=== PATIENT | female | born 1955 | race Caucasian/White ===

== ENCOUNTER → 2019-08-07 | Day surgery (SDC) | payer MEDICARE, OTHER ==
[~2019-08-07] MED LIST: ACETAMINOPHEN 1000 MG/100 ML IV ONE; ARMOUR THYROID60 MG PO; BACITRACIN 50,000 UNIT VIAL ONE; BUPIVACAINE HCL 0.5% INJ 30 ML VIAL INJ ONE; CEFAZOLIN SOD 1 GM/NS 50ML 50 ML IV ONE; CO Q-10300 MG PO; DEXAMETHASONE SOD PHOS INJ 4 MG/ML VIAL ONE; FENTANYL CITRATE/PF 100MCG/2 ML INJ ONE; KETOROLAC TROMETHAMINE 30 MG/ML VIAL ONE; LIDOCAINE HCL 2% LOCAL INJ 5 ML SDV VIAL INJ ONE; MIDAZOLAM HCL 2 MG/2 ML VIAL ONE; NALOXONE HCL INJ 0.4 MG/ML AMP ONE; ONDANSETRON HCL INJ 2MG/ML 2ML 2 MG/ML VIAL ONE; PROPOFOL IV EMULSION 10 MG/ML 20 ML VIAL ONE; SEVOFLURANE INHAL SOLN 250 ML PEN BTL ONE; VIT D PO; WELLBUTRIN SR150 MG PO; [UNRECOGNIZED DRUG - OTHER] PO
[2019-08-07 08:00] VITALS: BP 101/65
--- NOTE | 2019-08-07 08:51 | Operative Report ---
DATE OF PROCEDURE: 08/07/2019 SURGEON: Harpal Yousif DPM PREOPERATIVE DIAGNOSIS: Left hallux rigidus. POSTOPERATIVE DIAGNOSIS: Left hallux rigidus. PLANNED PROCEDURE: Left Briceno bunionectomy with implant. SURGEON: Priyanka Baker DPM ([place]) SHIPPING TEAM LEADER: Harpal Yousif DPM ANESTHESIA: General with a postoperative block consisting of 20 mL of 0.5% Marcaine plain. HEMOSTASIS: Pneumatic thigh tourniquet set at 350 mmHg for a total time of approximately 30 minutes. MATERIALS: One size 2 [id number] toe reference 1st MPJ implant, 2-0 Vicryl, 3-0 Vicryl, 4-0 Prolene after 4-0 nylon. ESTIMATED BLOOD LOSS: Less than 10 mL. PATHOLOGY: None. DESCRIPTION OF PROCEDURE: The patient was seen in the preoperative waiting room where the correct procedure and site were identified. The patient was brought to the operating room and placed on the operating table in the supine position. General anesthesia was initiated at this time. A well-padded pneumatic tourniquet was placed about the patient's left thigh. The left foot, ankle and leg was then scrubbed, prepped, and draped in the usual aseptic manner. The left foot, ankle and leg was exsanguinated with an Esmarch bandage and the pneumatic thigh tourniquet was inflated to 350 mmHg for a total time of approximately 20 minutes. Attention was directed to the dorsal medial aspect of the patient's left 1st metatarsophalangeal joint where a 5 cm linear incision was made. The incision was carried through the subcutaneous tissues them from deep or underlying structures. All vital and neurovascular structures were identified, retracted medially, laterally and all bleeders were cauterized or ligated as deemed necessary. At this time, attention was directed to the 1st metatarsophalangeal joint where there was noted to be greater than 80% degenerative cartilage and only 20% viable cartilage. The decision was made to proceed with a joint destructive procedure with an implant. Utilizing a sagittal saw, the dorsal medial and lateral eminence of the 1st metatarsophalangeal joint were resected and passed off to back table as well as the base of the proximal phalanx. The wound was then copiously irrigated with sterile saline. Next, utilizing manufacture protocol, one guidewire was placed into the 1st metatarsal head utilizing intraoperative C-arm. The wire was noted to be in the correct position and location. Next, the reamers were used in the proximal 1st metatarsal as well as the base of the proximal phalanx. Next, the grommets were placed followed by the implant, this was all confirmed to be in the correct position and location with intraoperative fluoroscopy. The wound was then copiously irrigated with sterile saline. Capsule and deep tissue were reapproximated with 2-0 Vicryl, subcutaneous tissue with 3-0 Vicryl and the skin was closed using a running interlocking stitch with 4-0 nylon. Incision site was then dressed with Adaptic, 4x4s, Kerlix, Sivakumar wrap, and a postop shoe. The patient tolerated the procedure and anesthesia well. The patient was transferred to the postop recovery room with vital signs stable and vascular status intact. The patient was monitored there for a short period time before being sent home with the following written and oral instructions. 1. Keep the dressing clean, dry, and intact. 2. The patient is to remain partial weightbearing in a postop shoe and to avoid excessive ambulation until being seen in the office. 3. The patient is given the office number and instructed to contact us if any problems arise. Dictated by Harpal Yousif DPM S [facility] ([place])/MODL /[id number]
== END | disposition home or self-care (01) ==
LOC: OR 05:00
PROVIDERS: ATTEND Podiatrist Foot & Ankle Surgery
DX: M20.22 Hallux rigidus, left foot (principal); G47.33 Obstructive sleep apnea (adult) (pediatric); E78.00 Pure hypercholesterolemia, unspecified; F32.9 Major depressive disorder, single episode, unspecified; F17.210 Nicotine dependence, cigarettes, uncomplicated; Z88.6 Allergy status to analgesic agent; Z88.2 Allergy status to sulfonamides; Z01.810 Encounter for preprocedural cardiovascular examination; Z01.812 Encounter for preprocedural laboratory examination; Z11.59 Encounter for screening for other viral diseases
CPT/HCPCS: 28291; 87635; 93005; J0131; J0690; J1100; J1885; J2001; J2250; J2310; J2405; J2704; J3010; L8642